=== PATIENT | female | born 1975 | race Caucasian/White ===

== ENCOUNTER → 2018-03-01 | Outpatient (CLI) | payer OTHER ==
[~2018-03-01] MED LIST: AMLO5 PO; CEPH500 PO; CETI5 PO; CIPR500 PO; DIAZ2 PO; ERGO50000 PO; Epipen0.3 MG/0.3 IM; FLUO10 PO; HYDACE5 PO; HYDPAM25 PO; HYDSUL200 PO; LEVSOD150 PO; LEVSOD50 PO; PRED10 PO; Prednisone20 MG PO; SULTRIDS PO; TOPI100 PO; WARF5 PO
[2018-03-03 13:21] LABS: HPV Genotype 16 Not Detected (NOTDET); HPV Genotype 18 Not Detected (NOTDET)
[2018-03-09 15:50] LABS: HPV High Risk Other Not Detected (NOTDET)
== END | disposition home or self-care (01) ==
LOC: LAB SHORT 12:14 → OLS 12:14
PROVIDERS: Obstetrics & Gynecology Gynecology
DX: Z12.4 Encounter for screening for malignant neoplasm of cervix (principal)
CPT/HCPCS: 87624; G0123

== ENCOUNTER → 2019-06-27 | Outpatient (CLI) | payer OTHER ==
[2019-06-29 15:07] LABS: HPV 16 Negative (Negative); HPV 18 Negative (Negative); HPV OTHER HR TYPES Negative (Negative)
== END | disposition home or self-care (01) ==
LOC: LAB 17:27 → LAB SHORT 17:27
PROVIDERS: Obstetrics & Gynecology Gynecology
DX: Z12.4 Encounter for screening for malignant neoplasm of cervix (principal)
CPT/HCPCS: 87624; G0123